=== PATIENT | male | born 1970 | race Caucasian/White ===

== ENCOUNTER 2020-05-12 21:09 | Emergency (ER) | payer MEDICARE ==
[~2020-05-12] VITALS: Ht 177.8 cm; Wt 81.7 kg
[~2020-05-12 21:09] MED LIST: ABILIFY15 MG PO; BACTRIM DS TAB1 EACH PO; CLONAZEPAM 1 MG1 M1 PO; DEXTROAMPHETAMIN5 M2 PO; INDERAL LA60 MG PO; LAMICTAL ODT100 MG PO; PROZAC20 MG PO; RESTORIL15 MG PO
[2020-05-12] MEDS ORDERED: BUSPIRONE HCL10 MG PO (21:47)
[2020-05-12] MEDS ORDERED: MELOXICAM15 MG PO (21:48)
[2020-05-12 22:58] VITALS: BP 115/70
== END 2020-05-12 22:58 | disposition home or self-care (01) ==
LOC: M.ERS 21:09
DX: S02.2XXA Fracture of nasal bones, initial encounter for closed fracture (principal); F17.210 Nicotine dependence, cigarettes, uncomplicated; Z88.1 Allergy status to other antibiotic agents; Y08.89XA Assault by other specified means, initial encounter; Y93.89 Activity, other specified; Y92.89 Other specified places as the place of occurrence of the external cause; Y99.8 Other external cause status